=== PATIENT | male | born 1950 | race Caucasian/White ===

== ENCOUNTER 2016-03-27 14:08 | Inpatient (IN) | payer MEDICARE ==
[~2016-03-27] VITALS: Ht 193 cm; Wt 175.5 kg
[2016-03-27] MEDS ORDERED: OPTIRAY 350 100 ML VIAL HMH IV ONE (14:56)
[2016-03-27 15:57] VITALS: BP_SYST 126; RESP 16; TEMP 98.5
[2016-03-27 16:34] VITALS: BMI 53.5
[2016-03-27 18:20] VITALS: RESP 19
[2016-03-27] MEDS: DUONEB INH SCH ×2 (19:00→23:02)
[2016-03-27] MEDS ORDERED: METHYLPRED SOD SUCC 40 MG VIAL IV SCH (19:10)
[2016-03-27] MEDS: NEB-BROVANA 15 MCG/2 ML INH SCH ×2 (19:10→23:02)
[2016-03-27 19:15] VITALS: BP_SYST 117; RESP 16; TEMP 99
[2016-03-28] VITALS (10 sets, daily range): BP systolic 105–128; RESP 16–20; TEMP 97.4–98.7
[2016-03-28] MEDS: DUONEB INH SCH ×5 (02:29→19:59)
[2016-03-28] MEDS: NEB-BROVANA 15 MCG/2 ML INH SCH ×2 (06:09→19:59)
[2016-03-28] MEDS: Finasteride 5 MG TAB PO SCH (07:47)
[2016-03-28] MEDS: METHYLPRED SOD SUCC 125 MG/2 ML VIAL IV SCH ×3 (07:47→16:24)
[2016-03-28] MEDS: ASPIRIN EC 81 MG TAB PO SCH (07:47)
[2016-03-28] MEDS: HCTZ PO SCH (07:47)
[2016-03-28] MEDS: BISOPROLOL PO SCH (07:47)
[2016-03-29] VITALS (10 sets, daily range): BP systolic 113–131; RESP 16–22; TEMP 97.5–98.4
[2016-03-29] MEDS: DUONEB INH SCH ×6 (00:09→18:53)
[2016-03-29] MEDS: METHYLPRED SOD SUCC 125 MG/2 ML VIAL IV SCH ×3 (00:34→15:49)
[2016-03-29] MEDS: NEB-BROVANA 15 MCG/2 ML INH SCH ×2 (06:36→18:53)
[2016-03-29] MEDS: BISOPROLOL PO SCH (07:53)
[2016-03-29] MEDS: HCTZ PO SCH (07:53)
[2016-03-29] MEDS: Finasteride 5 MG TAB PO SCH (07:53)
[2016-03-29] MEDS: ASPIRIN EC 81 MG TAB PO SCH (07:54)
[2016-03-30] VITALS (13 sets, daily range): BP systolic 107–131; RESP 16–32; TEMP 97.4–99.4
[2016-03-30] MEDS: DUONEB INH SCH ×7 (00:05→23:39)
[2016-03-30] MEDS: METHYLPRED SOD SUCC 40 MG VIAL IV SCH ×4 (00:33→23:57)
[2016-03-30] MEDS: NEB-BROVANA 15 MCG/2 ML INH SCH ×2 (08:04→19:04)
[2016-03-30] MEDS ORDERED: MODAFINIL 100 MG TAB PO SCH (09:00)
[2016-03-30] MEDS: HCTZ PO SCH (10:02)
[2016-03-30] MEDS: Finasteride 5 MG TAB PO SCH (10:02)
[2016-03-30] MEDS: ASPIRIN EC 81 MG TAB PO SCH (10:02)
[2016-03-30] MEDS: BISOPROLOL PO SCH (10:02)
[2016-03-30] MEDS ORDERED: Furosemide 20 MG/2 ML VIAL IV ONE (19:40)
[2016-03-31] VITALS (8 sets, daily range): BP systolic 101–140; RESP 18–26; TEMP 97.3–98
[2016-03-31] MEDS: DUONEB INH SCH ×6 (03:29→23:35)
[2016-03-31] MEDS: MODAFINIL 100 MG TAB PO SCH ×2 (06:02→12:20)
[2016-03-31] MEDS: NEB-BROVANA 15 MCG/2 ML INH SCH ×2 (08:08→18:40)
[2016-03-31] MEDS: METHYLPRED SOD SUCC 40 MG VIAL IV SCH (08:37)
[2016-03-31] MEDS: ASPIRIN EC 81 MG TAB PO SCH (08:37)
[2016-03-31] MEDS: Finasteride 5 MG TAB PO SCH (08:37)
[2016-03-31] MEDS: HCTZ PO SCH (08:37)
[2016-03-31] MEDS: BISOPROLOL PO SCH (08:37)
[2016-03-31] MEDS: Furosemide 40 MG/4 ML VIAL IV SCH (17:17)
[2016-03-31] MEDS ORDERED: MISSING DOSE XX ONE (20:00)
[2016-04-01] VITALS (9 sets, daily range): BP systolic 99–147; RESP 16–26; TEMP 97.3–98.3
[2016-04-01] MEDS: DUONEB INH SCH ×6 (03:17→23:17)
[2016-04-01] MEDS: MODAFINIL 100 MG TAB PO SCH ×2 (05:35→12:42)
[2016-04-01] MEDS: NEB-BROVANA 15 MCG/2 ML INH SCH ×2 (06:56→18:49)
[2016-04-01] MEDS: BISOPROLOL PO SCH (08:00)
[2016-04-01] MEDS: Furosemide 40 MG/4 ML VIAL IV SCH ×2 (08:00→15:55)
[2016-04-01] MEDS: Finasteride 5 MG TAB PO SCH (08:00)
[2016-04-01] MEDS: HCTZ PO SCH (08:00)
[2016-04-01] MEDS: ASPIRIN EC 81 MG TAB PO SCH (08:00)
[2016-04-02 02:08] VITALS: Ht 193 cm; Wt 175.5 kg
[2016-04-02] MEDS: DUONEB INH SCH ×4 (03:43→15:00)
[2016-04-02 04:56] VITALS: BP_SYST 96; RESP 22; TEMP 97.7
[2016-04-02] MEDS: MODAFINIL 100 MG TAB PO SCH ×2 (05:56→11:22)
[2016-04-02] MEDS: NEB-BROVANA 15 MCG/2 ML INH SCH (06:51)
[2016-04-02 07:39] VITALS: BP_SYST 115; RESP 22; TEMP 98.4
[2016-04-02] MEDS: Furosemide 40 MG/4 ML VIAL IV SCH (08:43)
[2016-04-02] MEDS: BISOPROLOL PO SCH (08:43)
[2016-04-02] MEDS: HCTZ PO SCH (08:43)
[2016-04-02] MEDS: ASPIRIN EC 81 MG TAB PO SCH (08:43)
[2016-04-02] MEDS: Finasteride 5 MG TAB PO SCH (08:43)
[2016-04-02 11:38] VITALS: BP_SYST 103; RESP 22; TEMP 97.7
[2016-04-02 14:23] VITALS: BP_SYST 103; RESP 22; TEMP 97.7
== END 2016-04-02 15:45 | disposition home or self-care (01) | DRG 191 ==
LOC: ENRESERVTM → ENRESERVDT → CANRESERV → 4THW 14:08 → UNDOADMOB 14:55 → OBSVTOIN 03-28 19:20 → ENPENDDIS 03-28 19:20
PROVIDERS: ADMIT Internal Medicine; ATTEND Internal Medicine
CPT/HCPCS: 36600; 70551; 71260; 80048; 80053; 81003; 82803; 83880; 84439; 84443; 85025; 93880; 94640; 94660; 94762; 94799